=== PATIENT | female | born 1945 | race Caucasian/White ===

== ENCOUNTER 2020-05-14 15:46 | Emergency (ER) | payer MEDICARE ==
[~2020-05-14] VITALS: Ht 167.6 cm; Wt 80.0 kg
[2020-05-14] MEDS ORDERED: TETANUS, DIPHTHERIA, PERTUSSIS VAC/PF 0.5ML (>7YR OLD) IM ONE (17:00)
[2020-05-14] MEDS ORDERED: BACITRACIN ZINC OINT UDPKT TOP ONE (17:00)
[2020-05-14] MEDS ORDERED: LIDOCAINE 1%/EPI 1:100,000 10 ML VIAL IJ ONE (17:00)
[2020-05-14 19:56] VITALS: BP 138/79
== END 2020-05-14 20:09 | disposition home or self-care (01) ==
LOC: ER 15:46
DX: S01.81XA Laceration without foreign body of other part of head, initial encounter (principal); W18.39XA Other fall on same level, initial encounter; Y93.89 Activity, other specified; Y92.89 Other specified places as the place of occurrence of the external cause; Y99.8 Other external cause status; M25.461 Effusion, right knee; I10 Essential (primary) hypertension
CPT/HCPCS: 70450; 90471; 90715; 99284; J3490; 12011